=== PATIENT | male | born 1930 | race Caucasian/White ===

== ENCOUNTER 2017-11-20 11:32 | Emergency (ER) | payer OTHER ==
[~2017-11-20] VITALS: Ht 175.3 cm; Wt 70.6 kg
[~2017-11-20 11:32] MED LIST: ALLO1TAB51 PO; AMOX250C3 PO; ASPI-428 PO; LEVO50TA6 PO; LISI-725 PO; METO25TA3 PO; NITR0.1S PO
[2017-11-20 11:37] VITALS: TEMP 36.7
[2017-11-20] MEDS ORDERED: LISI-725 PO (13:47)
[2017-11-20] MEDS ORDERED: SENN-61 PO (13:47)
[2017-11-20] MEDS ORDERED: ASPI81TA28 PO (13:47)
[2017-11-20] MEDS ORDERED: LEVO50TA6 PO (13:47)
[2017-11-20] MEDS ORDERED: CITA10TA4 PO (13:47)
[2017-11-20] MEDS ORDERED: ACET-1256 PO (13:47)
[2017-11-20] MEDS ORDERED: ALLO100T PO (13:47)
[2017-11-20 13:48] LABS: BASO % 0.2 %; BASO ABS # 0.02 K/uL (0-0.2); EOS % 2.6 %; EOS ABS # 0.25 K/uL (0-0.5); HEMATOCRIT 38.6 % (42-52); HEMOGLOBIN 13.1 g/dL (14.0-18.0); IG# 0.03 K/uL (0.00-0.02); LYMPH % 21.3 %; LYMPH ABS # 2.02 K/uL (1.2-3.4); MEAN CORPUSCULAR HEMOGLOBIN 32.6 pg (25-34); MEAN CORPUSCULAR HGB CONC 33.9 g/dl (32-36); MONO % 7.4 %; NEUT % 68.2 %; NEUT ABS # 6.47 K/uL (1.4-6.5); PLATELET COUNT 250 K/uL (130-400); RED CELL DISTRIBUTION WIDTH CV 13.1 % (11.5-14.5); RED CELL DISTRIBUTION WIDTH SD 45.4 fL (36.4-46.3); WHITE BLOOD COUNT 9.49 K/uL (4.8-10.8)
[2017-11-20 13:51] VITALS: Ht 175.3 cm; Wt 70.6 kg
[2017-11-20 13:58] LABS: PTT PATIENT 24.5 SECONDS (21.0-31.0)
[2017-11-20 14:05] VITALS: O2SAT 95
[2017-11-20 14:11] LABS: ALBUMIN 2.9 gm/dl (3.4-5.0); ALT/SGPT 20 U/L (12-78); BLOOD UREA NITROGEN 35 mg/dl (7-18); CALCIUM 10.3 mg/dl (8.5-10.1); CARBON DIOXIDE 25 mmol/L (21-32); GLUCOSE 89 mg/dl (70-99); POTASSIUM 4.7 mmol/L (3.5-5.1); SODIUM 137 mmol/L (136-145)
--- NOTE | 2017-11-20 14:13 | DIAGNOSTIC IMAGING REPORT ---
CT SCAN OF THE ABDOMEN AND PELVIS WITHOUT CONTRAST CLINICAL HISTORY: hematuria COMPARISON STUDY: No previous studies for comparison. TECHNIQUE: CT scan of the abdomen and pelvis was performed from the lung bases to the proximal femurs. Images are reviewed in the axial, sagittal, and coronal planes. IV contrast was not administered for this examination. A dose lowering technique was utilized adhering to the principles of ALARA. CT DOSE: 335.59 mGy.cm FINDINGS: Lower chest: There are bibasal atelectatic changes. There is a hiatal hernia. Liver: The unenhanced liver is normal in size, contour, and attenuation. There is no intrahepatic biliary ductal dilatation. Gallbladder: There are multiple gallstones present. There is no pericholecystic inflammation identified Spleen: Normal in size and attenuation. Pancreas: Unremarkable. Adrenal glands: There is bilateral adrenal gland thickening left greater than right. This is likely secondary to hyperplasia Kidneys: There is a 12 mm lower pole left renal cyst and 28 mm upper pole left renal cyst. There is a 23 mm lower pole right renal lesion which exceeds water attenuation and is therefore indeterminate. There is a 9 mm mid pole right renal lesion which exceeds water attenuation and is therefore indeterminate. There is a 14 mm upper pole right renal lesion which exceeds water attenuation and is therefore indeterminate. This contains a wall calcification. No renal calculi are visualized. No ureteral or bladder calculi are visualized. Bowel: There are no transition zones indicate bowel obstruction. There is extensive colonic diverticulosis. There are no acute peridiverticular inflammatory changes. The appendix is felt to be normal. Peritoneum: There is no intraperitoneal free air or abdominal ascites. Vasculature: There is a 33 mm infrarenal abdominal aortic aneurysm. Calcifications within the aortic lumen, likely represent calcified thrombus. An old dissection could potentially appear similar. Adenopathy: None. Pelvic viscera: There is anterior bladder herniation into a lower abdominal ventral hernia. There are postsurgical changes are prior prostatectomy. Skeletal structures: No destructive osseous lesions are seen. IMPRESSION: 1. No renal, ureteral, or bladder calculi identified 2. Multiple right renal lesions which exceed water attenuation. Further characterization is not possible on a noncontrast study. A dedicated renal CT scan is recommended in follow-up 3. Cholelithiasis 4. Suspected adrenal hyperplasia 5. 33 mm infrarenal abdominal aortic aneurysm 6. No evidence of bowel obstruction. No evidence of free air 7. Extensive diverticulosis. No evidence of acute diverticulitis 8. Lower anterior abdominal wall ventral hernia containing a portion of the bladder Electronically signed by: Grady Lua M.D. 11/20/2017 2:11 PM Dictated Date/Time: 11/20/2017 2:01 PM
[2017-11-20 14:22] LABS: ALKALINE PHOSPHATASE 98 U/L (45-117); AST/SGOT 15 U/L (15-37); TOTAL PROTEIN 6.5 gm/dl (6.4-8.2)
[2017-11-20] MEDS ORDERED: LIDOCAINE HCL 2% JELLY 30 ML TUBE EXT ONE (16:18)
[2017-11-20] MEDS ORDERED: CEPHALEXIN MONOHYDRATE 250 MG CAP PO ONE (18:15)
[2017-11-20] MEDS ORDERED: CEPH500C PO (18:35)
[2017-11-20 18:43] VITALS: BP 115/76; PULSE 75; O2SAT 98
--- NOTE | 2017-11-20 21:48 | EMERGENCY ROOM VISIT NOTE ---
History Report prepared by Shital: Maciej Matthews Under the Supervision of: Dr. Pablito Jordan M.D. First contact with patient: 12:09 Chief Complaint: HEMATURIA Stated Complaint: HEMATURIA Nursing Triage Summary: pt is from [facility], pt there for weakness. inswelling zamora removed on friday. on 11/18 has slight pinkness in urine, today voided fine then had about 10cc marcia blood after urination. denies pain History of Present Illness This HPI is somewhat limited secondary to mild confusion. The patient is an 86 year old male who presents to the Emergency Room due to persistent significant hematuria. The patient is currently an inpatient at [facility] for rehabilitation therapy secondary to global weakness. He was sent to the Emergency Department after they noticed significant hematuria. The patient was able to void his own bladder after arrival, which was bloody. He denies any current abdominal pain or nausea. He has no other complaints of pain. The patient's record does not show any current anticoagulation therapy. The patient denies LOC, headache, fevers, chills, diaphoresis, visual changes, neck pain, chest pain, breathing difficulties, nausea, vomiting, abdominal pain, back pain , melena, numbness, weakness, lymphadenopathy, rash, or other complaints. He has a history of Atrial Fibrillation, Coronary Artery Disease, hypertension, and Parkinson's Disease. The daughter arrived to the Department following initial exam. She notes that he had a catheter placed on Friday (one week ago ) and that is when the bleeding began. The physicians were unaware that the patient had bladder surgery in the past, which makes it difficult to place a catheter. They thought they were not getting urine from the catheter due to dehydration, so they administered IV fluids. The catheter placement was never successful. He has been bleeding since last Friday. 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 A total of ten systems were reviewed and were otherwise negative. Past Medical & Surgical Medical Problems: (1) Atrial fibrillation (2) Coronary artery disease Family History Omitted secondary to age. Social History Smoking Status: Former Smoker Drug Use: none Occupation Status: retired Current/Historical Medications Scheduled Allopurinol (Zyloprim), 200 MG PO DAILY Aspirin (Aspirin Ec), 81 MG PO DAILY Cephalexin Monohydrate (Keflex), 500 MG PO QID Citalopram Hydrobromide (Citalopram Hydrobromide), 1 TAB PO DAILY Levothyroxine Sodium (Levothyroxine Sodium), 1 TAB PO DAILY Lisinopril (Zestril), 20 MG PO DAILY Senna (Senokot), 1 TAB PO LUNCH Scheduled PRN Acetaminophen (Tylenol), 500 MG PO Q4 PRN for Pain Nitroglycerin (Nitroglycerin Lingual), PO PRN PRN for Chest Pain Allergies Coded Allergies: Statins (Verified Allergy, Intermediate, cramps in legs, 11/20/17) Trazodone (Unverified Adverse Reaction, Unknown, N/V, 11/20/17) Physical Exam Vital Signs Date Time Temp Pulse Resp B/P (MAP) Pulse Ox O2 Delivery O2 Flow Rate FiO2 11/20/17 18:43 75 16 115/76 98 11/20/17 17:36 72 16 146/65 98 Room Air 11/20/17 15:43 81 18 134/81 98 Room Air 11/20/17 14:05 95 Room Air 11/20/17 14:04 83 16 147/77 95 Room Air 11/20/17 11:37 36.7 83 19 164/87 98 Room Air Physical Exam GENERAL: Awake, alert, well-appearing, in no distress HENT: Normocephalic, atraumatic. Oropharynx unremarkable. EYES: Normal conjunctiva. Sclera non-icteric. NECK: Supple. No nuchal rigidity. FROM. No JVD. RESPIRATORY: Clear to auscultation. CARDIAC: Regular rate, normal rhythm. Extremities warm and well perfused. Pulses equal. ABDOMEN: Soft, non-distended. No tenderness to palpation. No rebound or guarding. No masses. RECTAL: Deferred. MUSCULOSKELETAL: Chest examination reveals no tenderness. The back is symmetrical on inspection without obvious abnormality. There is no CVA tenderness to palpation. No joint edema. LOWER EXTREMITIES: Calves are equal size bilaterally and non-tender. No edema. No discoloration. NEURO: Normal sensorium. No sensory or motor deficits noted. SKIN: No rash or jaundice noted. : Normal external genitalia, there is blood present on the meatus. Medical Decision & Procedures ER Provider Diagnostic Interpretation: Radiology results as stated below per my review and radiologist interpretation: CT SCAN OF THE ABDOMEN AND PELVIS WITHOUT CONTRAST CLINICAL HISTORY: hematuria COMPARISON STUDY: No previous studies for comparison. TECHNIQUE: CT scan of the abdomen and pelvis was performed from the lung bases to the proximal femurs. Images are reviewed in the axial, sagittal, and coronal planes. IV contrast was not administered for this examination. A dose lowering technique was utilized adhering to the principles of ALARA. CT DOSE: 335.59 mGy.cm FINDINGS: Lower chest: There are bibasal atelectatic changes. There is a hiatal hernia. Liver: The unenhanced liver is normal in size, contour, and attenuation. There is no intrahepatic biliary ductal dilatation. Gallbladder: There are multiple gallstones present. There is no pericholecystic inflammation identified Spleen: Normal in size and attenuation. Pancreas: Unremarkable. Adrenal glands: There is bilateral adrenal gland thickening left greater than right. This is likely secondary to hyperplasia Kidneys: There is a 12 mm lower pole left renal cyst and 28 mm upper pole left renal cyst. There is a 23 mm lower pole right renal lesion which exceeds water attenuation and is therefore indeterminate. There is a 9 mm mid pole right renal lesion which exceeds water attenuation and is therefore indeterminate. There is a 14 mm upper pole right renal lesion which exceeds water attenuation and is therefore indeterminate. This contains a wall calcification. No renal calculi are visualized. No ureteral or bladder calculi are visualized. Bowel: There are no transition zones indicate bowel obstruction. There is extensive colonic diverticulosis. There are no acute peridiverticular inflammatory changes. The appendix is felt to be normal. Peritoneum: There is no intraperitoneal free air or abdominal ascites. Vasculature: There is a 33 mm infrarenal abdominal aortic aneurysm. Calcifications within the aortic lumen, likely represent calcified thrombus. An old dissection could potentially appear similar. Adenopathy: None. Pelvic viscera: There is anterior bladder herniation into a lower abdominal ventral hernia. There are postsurgical changes are prior prostatectomy. Skeletal structures: No destructive osseous lesions are seen. IMPRESSION: 1. No renal, ureteral, or bladder calculi identified 2. Multiple right renal lesions which exceed water attenuation. Further characterization is not possible on a noncontrast study. A dedicated renal CT scan is recommended in follow-up 3. Cholelithiasis 4. Suspected adrenal hyperplasia 5. 33 mm infrarenal abdominal aortic aneurysm 6. No evidence of bowel obstruction. No evidence of free air 7. Extensive diverticulosis. No evidence of acute diverticulitis 8. Lower anterior abdominal wall ventral hernia containing a portion of the bladder Electronically signed by: Grady Lua M.D. 11/20/2017 2:11 PM Dictated Date/Time: 11/20/2017 2:01 PM Laboratory Results 11/20/17 13:32 Red Blood Count 4.02, Mean Corpuscular Volume 96.0, Mean Corpuscular Hemoglobin 32.6, Mean Corpuscular Hemoglobin Concent 33.9, Mean Platelet Volume 10.0, Neutrophils (%) (Auto) 68.2, Lymphocytes (%) (Auto) 21.3, Monocytes (%) (Auto) 7.4, Eosinophils (%) (Auto) 2.6, Basophils (%) (Auto) 0.2, Neutrophils # (Auto) 6.47, Lymphocytes # (Auto) 2.02, Monocytes # (Auto) 0.70, Eosinophils # (Auto) 0.25, Basophils # (Auto) 0.02 11/20/17 13:32 Test 11/20/17 12:24 11/20/17 13:32 Urine Color RED Urine Appearance CLOUDY (CLEAR) Urine pH 5.5 (4.5-7.5) Urine Specific [place] 1.010 (1.000-1.030) Urine Protein TRACE (NEG) Urine Glucose (UA) NEG (NEG) Urine Ketones NEG (NEG) Urine Occult Blood 3+ (NEG) Urine Nitrite NEG (NEG) Urine Bilirubin NEG (NEG) Urine Urobilinogen NEG (NEG) Urine Leukocyte Esterase NEG (NEG) Urine RBC >30 /hpf (0-4) Urine WBC 10-30 /hpf (0-5) Urine Epithelial Cells 5-10 /lpf (0-5) Urine Bacteria NEG (NEG) White Blood Count 9.49 K/uL (4.8-10.8) Red Blood Count 4.02 M/uL (4.7-6.1) Hemoglobin 13.1 g/dL (14.0-18.0) Hematocrit 38.6 % (42-52) Mean Corpuscular Volume 96.0 fL (80-100) Mean Corpuscular Hemoglobin 32.6 pg (25-34) Mean Corpuscular Hemoglobin Concent 33.9 g/dl (32-36) Platelet Count 250 K/uL (130-400) Mean Platelet Volume 10.0 fL (7.4-10.4) Neutrophils (%) (Auto) 68.2 % Lymphocytes (%) (Auto) 21.3 % Monocytes (%) (Auto) 7.4 % Eosinophils (%) (Auto) 2.6 % Basophils (%) (Auto) 0.2 % Neutrophils # (Auto) 6.47 K/uL (1.4-6.5) Lymphocytes # (Auto) 2.02 K/uL (1.2-3.4) Monocytes # (Auto) 0.70 K/uL (0.11-0.59) Eosinophils # (Auto) 0.25 K/uL (0-0.5) Basophils # (Auto) 0.02 K/uL (0-0.2) RDW Standard Deviation 45.4 fL (36.4-46.3) RDW Coefficient of Variation 13.1 % (11.5-14.5) Immature Granulocyte % (Auto) 0.3 % Immature Granulocyte # (Auto) 0.03 K/uL (0.00-0.02) Prothrombin Time 10.2 SECONDS (9.0-12.0) Prothromb Time International Ratio 1.0 (0.9-1.1) Activated Partial Thromboplast Time 24.5 SECONDS (21.0-31.0) Partial Thromboplastin Ratio 0.9 Anion Gap 7.0 mmol/L (3-11) Est Creatinine Clear Calc Drug Dose 36.6 ml/min Estimated GFR () 48.8 Estimated GFR (Non- 42.1 BUN/Creatinine Ratio 23.1 (10-20) Calcium Level 10.3 mg/dl (8.5-10.1) Magnesium Level 2.0 mg/dl (1.8-2.4) Total Bilirubin 0.3 mg/dl (0.2-1) Direct Bilirubin < 0.1 mg/dl (0-0.2) Aspartate Amino Transf (AST/SGOT) 15 U/L (15-37) Alanine Aminotransferase (ALT/SGPT) 20 U/L (12-78) Alkaline Phosphatase 98 U/L (45-117) Total Protein 6.5 gm/dl (6.4-8.2) Albumin 2.9 gm/dl (3.4-5.0) Thyroid Stimulating Hormone (TSH) 1.850 uIu/ml (0.300-4.500) Laboratory results reviewed by me Medications Administered Medications (Trade) Dose Ordered Sig/Anibal Route Start Time Stop Time Status Last Admin Dose Admin Lidocaine HCl (Xylocaine Jelly 2%) 30 ml STK-MED ONCE EXT 11/20/17 16:18 11/20/17 16:19 DC 11/20/17 16:18 30 ML Cephalexin Monohydrate (Keflex Cap) 500 mg NOW ONCE PO 11/20/17 18:15 11/20/17 18:16 DC 11/20/17 18:25 500 MG ED Course 1222: The patient was evaluated in room B7. A complete history and physical exam was performed. 1524: I checked on the patient at this time. I updated his family on the case. 1530: I discussed the case with Loyda PENA U[facility]. She will speak with her attendings and come up with a plan. 1608: Loyda Jaime called back at this time. She suggests that we try to place a new Zamora Catheter at this time. 1646: The film or tape librarian successfully placed a Zamora catheter at this time. It is now draining urine. 1843: I reevaluated the patient. Discussed results and discharge instructions: He verbalized understanding and agreement. The patient is ready for discharge. Medical Decision Triage Nursing notes reviewed. The patient's presentation and history were concerning for hematuria. Etiologies such as mechanical trauma from recent Zamora catheterization, renal colic, UTI, malignancy, coagulopathy, anemia, as well as others were entertained. The patient was evaluated. Clinically he was doing well. He did have hematuria here. Urinalysis was sent. There were red cells and white cells present. Blood work was unremarkable. CT imaging didn't reveal some renal abnormalities that will need further evaluation. The patient will be referred to urology for this. The patient had a consultation made with chasity Vu urology. It was recommended to post Zamora catheter. This was performed and worked very well. The patient was able to urinate clearly. I suspect that he had urethral trauma from the unsuccessful catheterization on his prior hospitalization. He will have a follow-up with urology first thing next week on Friday. Placed on Keflex while cultures are pending. I reviewed everything with his daughter and son-in-law. They're very pleased with the treatment. The patient was transferred back to [facility] for further management. By the evaluation outlined above other emergent etiologies such as those listed in the differential, as well as others, were deemed relatively unlikely. The patient was educated about the findings as listed above. All questions were answered and the patient was pleased with the treatment. Return instructions were outlined and the patient was discharged in stable condition. The patient was referred to urology and back to [facility] for follow-up for a recheck of the current condition. Blood Pressure Screening Patient's blood pressure: Elevated blood pressure Consults Time Called: 1525 Consulting Physician: Loyda PENA [facility] Returned Call: 1530 I discussed the case with Loyda BERG [facility]. She will speak with her attendings and come up with a plan. Impression Primary Impression: Hematuria Scribe Attestation The scribe's documentation has been prepared under my direction and personally reviewed by me in its entirety. I confirm that the note above accurately reflects all work, treatment, procedures, and medical decision making performed by me. Departure Information Dispostion Home / Self-Care Prescriptions Cephalexin Monohydrate (Keflex) 500 Mg Cap 500 MG PO QID, #20 CAP Prov: Jamar Parrish MD 11/20/17 Referrals Jamar Baca M.D. (PCP) Forms HOME CARE DOCUMENTATION FORM, IMPORTANT VISIT INFORMATION, WORK / SCHOOL INSTRUCTIONS Patient Instructions My [facility] Additional Instructions Cephalexin(Keflex) 500mg: Take one pill four times daily for 5 days for your urine. All antibiotics can cause diarrhea. If this occurs and you feel worse or it does not resolve in 1-2 days follow up with your doctor or return to the Emergency Department as this could be signs of serious underlying problems. Any medication can cause an allergic reaction, stop the pills immediately and return to the ER for rash, hives, breathing difficulties, or swelling. Acetaminophen(Tylenol) may be used for fever or pain. Use 1000mg every six hours as needed. Avoid using more than 3000mg in a 24 hour period. Continue current medications. Care for the catheter as discussed. Do not pull on the catheter. Use the leg bag during the day and the large bag at night when you are sleeping. Drain the bag frequently. Do not let it fill completely. Return to the emergency department for fevers, abdominal pain, catheter problems , or as needed. Followup with the [facility] at [phone], this coming Friday at 1:40 PM with BECKY Galeas
== END 2017-11-20 18:46 | disposition home or self-care (01) ==
LOC: EDBD 11:32 → C.EDB 11:34
DX: R31.9 Hematuria, unspecified (principal); I48.91 Unspecified atrial fibrillation; I25.10 Atherosclerotic heart disease of native coronary artery without angina pectoris; I10 Essential (primary) hypertension; G20 Parkinson's disease; Z87.891 Personal history of nicotine dependence; Z79.899 Other long term (current) drug therapy; Z79.82 Long term (current) use of aspirin

== ENCOUNTER → 2017-12-02 | Outpatient (CLI) | payer OTHER ==
[~2017-12-02] MED LIST changes: +ACET-1256 PO; +ALLO100T PO; -ALLO1TAB51 PO; -AMOX250C3 PO; -ASPI-428 PO; +ASPI81TA28 PO; +CEPH500C PO; +CITA10TA4 PO; +GADAVIST IV PRN; -METO25TA3 PO; +SENN-61 PO
--- NOTE | 2017-12-02 14:50 | DIAGNOSTIC IMAGING REPORT ---
MRI ABDOMEN COMBO CLINICAL HISTORY: R31.0 Gross [id number] Right renal mass TECHNIQUE: Imaging was performed prior to and following IV contrast injection. The patient received 7 cc of intravenous Gadavist. COMPARISON STUDY: Noncontrast CT scan dated 11/20/2017 FINDINGS: Imaging was performed in the axial and coronal planes. Visualized portions the liver reveal no masses. Visualized portions of the spleen reveal no masses. No pancreatic masses are visualized. There are multiple gallstones present. There is bilateral adrenal hyperplasia. There is mild aneurysmal dilatation of the infrarenal abdominal aorta which measures 32 mm. There are multiple T2 bright hepatic masses. An 18 mm exophytic right renal mass demonstrates increased T1 signal consistent with a proteinaceous cyst. None of the masses demonstrate pathologic enhancement. Evaluation is somewhat limited due to respiratory motion artifact. There is no evidence of pathologic adenopathy. IMPRESSION: 1. Mildly limited study from a technical standpoint secondary to patient motion artifact 2. Multiple bilateral renal masses which are felt to represent a combination of simple cysts and proteinaceous cyst. There are no enhancing lesions to indicate a renal malignancy 3. 32 mm infrarenal abdominal aortic aneurysm 4. Cholelithiasis Electronically signed by: Grady Lua M.D. 12/02/2017 2:48 PM Dictated Date/Time: 12/02/2017 2:39 PM
== END | disposition home or self-care (01) ==
LOC: C.MRI 13:20
PROVIDERS: ATTEND Nurse Practitioner Adult Health
DX: N28.89 Other specified disorders of kidney and ureter (principal); R31.0 Gross hematuria; K80.20 Calculus of gallbladder without cholecystitis without obstruction; I71.4 Abdominal aortic aneurysm, without rupture